=== PATIENT | female | born 1940 | race Caucasian/White ===

== ENCOUNTER 2017-02-07 05:23 | Observation (INO) | payer MEDICARE, OTHER ==
--- NOTE | ~2017-02-07 | DS ---
Discharge Summary [facility] [address] [place]. [address] NAME: SRIKANTH CLINTON : 36 STATUS : DIS Best PAT#: [id number] AGE: 76 ADM/REG DATE : 02/07/17 MR#: [id number] REPORT SERV DATE: 02/08/17 DICTATED BY: PRINCE EISENBERG DATE: 02/07/17 REPORT STATUS : Draft TRANSCRIBED BY: VEL DATE: 02/07/17 ADMISSION DATE: 02/07/2017 DISCHARGE DATE: 02/07/2017 DISCHARGE DIAGNOSES: 1. Precordial chest pain. 2. Hypertension. 3. History of coronary artery disease. 4. Diabetes mellitus type 2, diet controlled. 5. History of osteoarthritis. 6. Gastroesophageal reflux disease. DISCHARGE CONDITION: Stable. PROCEDURE: Cardiac stress test. SUMMARY: 1. Micheal stage 2, achieved 86% MPHR at 7.0 METS. 2. No anginal chest pain. 3. No EKG changes of ischemia. 4. Imaging demonstrated no ischemia as below. Technical limitation as below. Post exercise left ventricular ejection fraction greater than 60%. 5. Overall low risk stress test. HISTORY OF PRESENT ILLNESS: For detailed HPI, please make reference to Dr. Kt Salas's dictation on 02/07/2017. In brief, this is a 76-year-old female with medical history of coronary artery disease with prior history of [place] in 2006, diet-controlled diabetes mellitus who presented to [facility] with report of left-sided chest pain. Initial evaluation showed a blood pressure of 170s. Lab shows unremarkable troponin x2. EKG shows no ST-T wave elevated segments. In the ER, patient received aspirin and nitroglycerin p.o. The patient had no further episodes of chest pain. Blood pressure trended down to 140s and remained stable. EKG shows no acute ST-segment elevation. The patient was admitted to the Hospitalist Service for further evaluation. HOSPITAL COURSE: Precordial chest pain. The patient underwent a cardiac stress test that shows low risk for cardiac ischemia. The patient had no further episode of chest pain or shortness of breath during the course of this admission. At the time of my evaluation, the patient reported that she was feeling very well. She had no further complaints, and she requested to be discharged home to follow up with her primary rice drier, Dr. Shin as an outpatient. DISCHARGE MEDICATIONS: 1. Aspirin 81 mg p.o. daily. 2. Coenzyme Q 100 mg cap p.o. daily. DISCHARGE ACTIVITIES: As tolerated. Discharge Summary [place] [address] [place] [address] NAME: SRIKANTH CLINTON : 38 STATUS : DIS Best PAT#: [id number] AGE: 76 ADM/REG DATE : 02/07/17 MR#: [id number] REPORT SERV DATE: 02/08/17 DICTATED BY: PRINCE EISENBERG DATE: 02/07/17 REPORT STATUS : Draft TRANSCRIBED BY: VEL DATE: 02/07/17 DISCHARGE DISPOSITION: Home. FOLLOWUP: 1. The patient to follow up with primary rice drier within one to two weeks of discharge. 2. The patient to continue followup with primary care physician within one week to two weeks of discharge. Greater than 30 minutes was used to prepare this patient's discharge, reconcile medication, and advise the patient on discharge plans and followup. FADIO/VEL Prince Eisenberg MD / [id number]
--- NOTE | ~2017-02-07 | HP ---
History And Physical [place] [id number] [facility] [place]. [address] NAME: SRIKANTH MONTANEZ : 36 STATUS : ADM Best PAT#: [id number] AGE: 76 ADM/REG DATE : 02/07/17 MR#: [id number] REPORT SERV DATE: 02/07/17 DICTATED BY: JARRED DAMON DATE: 02/07/17 REPORT STATUS : Draft TRANSCRIBED BY: MODL DATE: 02/07/17 DATE OF ADMISSION: 02/07/2017 POINT OF ENTRY: Transferred from [facility] Emergency Department. PRIMARY SUPPORT MERCHANDISER: Joe Shin M.D. CHIEF COMPLAINT: Chest pain. HISTORY OF PRESENT ILLNESS: Ms Montanez is a 76-year-old female with a history of coronary artery disease with myocardial infarction in 2006 as well as diet-controlled diabetes and hypertriglyceridemia, who presents to the emergency department at [facility] with reports of acute onset of left-sided sharp and stabbing chest pain. The patient states that she was in her usual state of health until last evening when she woke up around midnight with some lower extremity leg cramping. Shortly after that, she noted some sharp and stabbing also achy type chest pain located underneath her left breast with radiation to the substernal region. Shortly after that it started to radiate to her left neck and left shoulder as well. She estimates that chest pain lasted about an hour-and a-half to two hours, and did not resolve until she presented to [facility] Emergency Department. She took three baby aspirin at home prior to presenting to the ER. Initial evaluation in the emergency department at [facility] was notable for hypertension with systolics in the 170s to 190s, labs otherwise unremarkable including troponin that was negative. EKG was nonischemic. Chest x-ray was reportedly was clear. She was given some nitroglycerin and then transferred to [facility]. The patient states she currently is chest pain-free. She denies any recent fevers, night sweats, chills, cough, sputum production, shortness of breath, abdominal pain, nausea, vomiting, diarrhea, constipation, dysuria, lower extremity edema, melena, hematochezia, hemoptysis, or hematemesis. Comprehensive review of systems otherwise negative unless listed in history of present illness. The patient states her last stress test was probably in 2011, which I am able to see in [facility] which was nonischemic at that time. She had a recent echocardiogram about three to four weeks ago that showed ejection fraction of 50% with some mild diastolic dysfunction. Currently is on a diet in effort to bring down her elevated triglyceride levels. PREVIOUS MEDICAL HISTORY: 1. Remote history of coronary artery disease with myocardial infarction in 2006, no stents. 2. Diet-controlled diabetes mellitus. 3. Hypertriglyceridemia. 4. Cataracts. 5. Osteoarthritis. 6. Depression. History And Physical [address] [address] NAME: SRIKANTH MONTANEZ : 36 STATUS : ADM Best PAT#: [id number] AGE: 76 ADM/REG DATE : 02/07/17 MR#: [id number] REPORT SERV DATE: 02/07/17 DICTATED BY: JARRED DAMON DATE: 02/07/17 REPORT STATUS : Draft TRANSCRIBED BY: MODL DATE: 02/07/17 7. History of diverticulitis. 8. History of obstructive sleep apnea, no longer on CPAP therapy. SURGICAL HISTORY: 1. Abdominal hysterectomy. 2. Bilateral total knee. 3. Breast lumpectomy. 4. Cystocele repair. 5. Rectocele repair. 6. Appendectomy. ALLERGIES: TO CODEINE AND LEVAQUIN. HOME MEDICATIONS: Pending at the time dictation, but the patient states she takes no prescription medications, she only takes [id number] vitamins and mineral supplements as well as fish oil. SOCIAL HISTORY: Denies any tobacco, alcohol, or illicits. FAMILY MEDICAL HISTORY: Mother with coronary artery disease and history of venous thromboembolism. Father with coronary artery disease in his 60s. Siblings, only child. LABS AND IMAGING: All obtained from transfer records from [facility] Emergency Department: 1. White count is 8.4, hemoglobin is 14.3, hematocrit is 42.7, and platelet count is 240. 2. Sodium is 140, potassium 3.7, chloride 105, carbon dioxide 27, BUN 15, creatinine 0.7, glucose is 127, calcium is 9.5, protein is 7.4, albumin is 4.1, bilirubin is 0.5, ALT is 23, AST is 17, and alkaline phosphatase is 93. 3. Troponin less than 0.02. 4. EKG per my review of both EKG obtained here as well as at [facility] shows a normal sinus rhythm with heart rates in the 50s to 60s with a first-degree AV block, but otherwise no evidence of any acute ischemia or infarction. 5. Chest x-ray per verbal report from the ER provider shows no acute cardiopulmonary abnormality. 6. Urinalysis: Spec gravity is 1.015, trace leukocyte esterase with 2 to 5 white blood cells per high-powered field. PHYSICAL EXAMINATION: VITAL SIGNS: Temperature is afebrile, pulse is 63, respirations 16, saturating 99% with 2 L nasal cannula, and blood pressure 137/83. GENERAL: The patient is awake, alert, and in no acute distress. Resting comfortably in bed. She is a well-developed, well-nourished, elderly female. HEENT: Atraumatic and normocephalic. Moist mucous membranes. Pupils are equal, round, reactive to light and accommodation. Extraocular eye movements intact. No scleral icterus. NECK: No jugular venous distention. No carotid bruits. CARDIAC: Regular rate and rhythm. No murmurs or gallops. Normal S1, S2. I am unable to reproduce the chest pain with palpation of her anterior chest. History And Physical [address] [address] NAME: SRIKANTH MONTANEZ : 36 STATUS : ADM Best PAT#: [id number] AGE: 76 ADM/REG DATE : 02/07/17 MR#: [id number] REPORT SERV DATE: 02/07/17 DICTATED BY: JARRED DAMON DATE: 02/07/17 REPORT STATUS : Draft TRANSCRIBED BY: VEL DATE: 02/07/17 LUNGS: Clear to auscultation bilaterally. No wheezes, rhonchi, or crackles. ABDOMEN: Soft, nontender, and nondistended. Good bowel sounds. No rebound, guarding, or rigidity. EXTREMITIES: Warm and perfused. No cyanosis, clubbing, or edema. SKIN: Warm and dry. PSYCH: Affect appropriate. NEURO: Alert and oriented x3. Cranial nerves 2 through 12 grossly intact. Speech is normal. Gait not assessed. ASSESSMENT AND PLAN: Ms Montanez is a 76-year-old female with a history of coronary artery disease, diet-controlled diabetes mellitus type 2, as well as hypertriglyceridemia, who presents with acute onset of left-sided chest pain with radiation to the substernal region as well as left arm and chest. PROBLEM LIST: 1. Chest pain. 2. Hypertension. 3. Hypertriglyceridemia. 4. Diet-controlled diabetes mellitus type 2. PLAN: 1. Chest pain. The patient's initial EKG and cardiac enzymes are nonischemic. She is currently chest pain free. We will follow up results of repeat cardiac enzymes. We will continue baby aspirin. We will schedule her for a stress test this morning as well as let Dr. Shin know that she is here. 2. Hypertension. No prior history of hypertension and no medication therapy previously, may be due to the patient's underlying chest pain. We will treat initially with sublingual nitroglycerin as well as p.r.n. IV hydralazine. 3. Hypertriglyceridemia. Checking lipid panel. 4. Diet-controlled diabetes mellitus type 2. The patient's blood sugar was 127 at [facility]. Checking A1c. 5. DVT prophylaxis. Lovenox subcu. CODE STATUS: The patient wished to be full code. VERONIKA/VEL Jarred Damon MD / [id number] CC: Can Topete Jr, MD Mary Hammock, M.D. History And Physical [address] [address] NAME: SRIKANTH MONTANEZ : 36 STATUS : ADM Best PAT#: [id number] AGE: 76 ADM/REG DATE : 02/07/17 MR#: [id number] REPORT SERV DATE: 02/07/17 DICTATED BY: JARRED DAMON DATE: 02/07/17 REPORT STATUS : Draft TRANSCRIBED BY: VEL DATE: 02/07/17 Joe Shin M.D.
[~2017-02-07 05:23] MED LIST: *DENIES; BIOTIN10 MG PO; CO Q-10100 MG PO; CO Q-10200 MG PO; COZ25 PO; FISH-EPA1000 MG PO; FLAG500TAB PO; LEVAQUIN750 MG PO; LOP25 PO; LUTEIN20 MG PO; OSTEOBIFLEX PO; PROTANDEM PO; PROTANDIM PO; PROTONIX PO; VITAMIN D31000 UNIT PO
[2017-02-07 06:54] LABS: TROPONIN I <0.02 NG/ML (<0.05)
[2017-02-07 06:55] LABS: CK-MB 1.5 NG/ML; CPK 141 U/L (0-200)
[2017-02-07 08:49] LABS: CHOL/HDL RATIO(NOT ORDER) 4.3 (0-5); CHOLESTEROL 183 MG/DL (< 200); HDL CHOLESTEROL 43 MG/DL (> 49); LDL CHOLESTEROL 120 MG/DL (< 130); NON-HDL CHOLESTEROL 140 MG/DL (< 160)
[2017-02-07 08:50] LABS: TRIGLYCERIDE 102 MG/DL (< 150)
[2017-02-07 13:25] LABS: CPK 126 U/L (0-200); TROPONIN I <0.02 NG/ML (<0.05)
[2017-02-07 13:26] LABS: CK-MB 1.1 NG/ML
[2017-02-07] MEDS ORDERED: ASAB PO (18:54)
== END 2017-02-07 19:53 | disposition home or self-care (01) ==
LOC: 5NO 05:23
PROVIDERS: Internal Medicine; Internal Medicine Pulmonary Disease
DX: R07.2 Precordial pain (principal); E78.1 Pure hyperglyceridemia; F32.9 Major depressive disorder, single episode, unspecified; M19.90 Unspecified osteoarthritis, unspecified site; E11.9 Type 2 diabetes mellitus without complications; I25.10 Atherosclerotic heart disease of native coronary artery without angina pectoris; I10 Essential (primary) hypertension; I25.2 Old myocardial infarction; G47.33 Obstructive sleep apnea (adult) (pediatric); K21.9 Gastro-esophageal reflux disease without esophagitis; Z88.0 Allergy status to penicillin; Z88.5 Allergy status to narcotic agent; Z88.1 Allergy status to other antibiotic agents; Z90.710 Acquired absence of both cervix and uterus; Z90.49 Acquired absence of other specified parts of digestive tract; Z98.890 Other specified postprocedural states; Z96.653 Presence of artificial knee joint, bilateral; Z79.82 Long term (current) use of aspirin
CPT/HCPCS: 78452; 80061; 82550; 82553; 83036; 84484; 93005; 93017; 96372; A9270-GY; A9502; G0378